=== PATIENT | female | born 1955 | race Caucasian/White ===

== ENCOUNTER → 2017-02-21 | Outpatient (CLI) | payer OTHER, MEDICARE ==
[~2017-02-21] MED LIST: CALC-20 PO; COLE1TAB5 PO; DICY10CA12 PO; IMD/2 PO; LEVO50TA6 PO; LSN5 PO; MULT-663 PO; ULT50X PO
--- NOTE | 2017-02-21 16:07 | MAMMOGRAPHY REPORT ---
BILATERAL DIGITAL SCREENING MAMMOGRAM TOMOSYNTHESIS WITH CAD: 02/21/2017 CLINICAL HISTORY: Asymptomatic. Personal history of breast cancer. TECHNIQUE: Breast tomosynthesis in addition to standard 2D mammography was performed. Current study was also evaluated with a Computer Aided Detection (CAD) system. COMPARISON: Comparison is made to exams dated: 02/19/2016 mammogram, 02/16/2015 mammogram, 12/30/2013 ma mmogram, 04/16/2013 mammogram, 10/16/2012 mammogram, and 03/05/2012 mammogram - [facility] nter. BREAST COMPOSITION: The tissue of both breasts is heterogeneously dense, which may obscure small mas ses. FINDINGS: There or possible areas of architectural distortion in the middle and posterior one third of the medial left breast, best seen on the CC view but thought to project superiorly on the MLO view . Additional spot compression tomosynthesis views and ultrasound are recommended. A linear scar marker overlies the right superior breast. There is expected architectural distortion and surgical clips at the site of prior lumpectomy. There is stable asymmetry in the inferior left b reast on the MLO view. No other suspicious mass, architectural distortion or cluster of microcalcific ations is seen. IMPRESSION: ACR BI-RADS CATEGORY 0: INCOMPLETE EVALUATION: NEED ADDITIONAL IMAGING EVALUATION The possible areas of architectural distortion in the medial left breast need additional evaluation. The patient will be called to schedule an appointment. Approximately 10% of breast cancers are not detected with mammography. A negative mammographic report should not delay biopsy if a clinically suggestive mass is present. Gilda Helm M.D. ay/:02/21/2017 16:02:25 Flyer Builder: Jacqui VALERO(Zarina)(M)(BD), [facility] letter sent: Addl Imaging 0 BI-RADS Code: ACR BI-RADS Category 0: Incomplete Evaluation: Need Additional Imaging Evaluation
== END | disposition home or self-care (01) ==
LOC: C.MAMM 10:29
PROVIDERS: ATTEND Internal Medicine Hematology
DX: Z12.31 Encounter for screening mammogram for malignant neoplasm of breast (principal); Z85.3 Personal history of malignant neoplasm of breast; R92.8 Other abnormal and inconclusive findings on diagnostic imaging of breast

== ENCOUNTER → 2017-03-06 | Outpatient (CLI) | payer OTHER, MEDICARE ==
--- NOTE | 2017-03-06 14:33 | MAMMOGRAPHY REPORT ---
UNILATERAL LEFT DIGITAL DIAGNOSTIC MAMMOGRAM TOMOSYNTHESIS AND TARGETED LEFT ULTRASOUND: 03/06/2017 CLINICAL HISTORY: 61-year-old woman called back from screening mammography for possible areas of arch itectural distortion in the medial left breast. The patient has a personal history of right breast c ancer status post breast conservation treatment. TECHNIQUE: Spot compression left CC and MLO tomosynthesis images were obtained. COMPARISON: Comparison is made to exams dated: 02/21/2017 mammogram, 02/16/2015 mammogram, 12/30/2013 zia mogram, 10/16/2012 mammogram, and 08/29/2011 mammogram - [facility]. BREAST COMPOSITION: The tissue of the left breast is heterogeneously dense, which may obscure small masses. FINDINGS: There is no definite persistent architectural distortion on the spot compression tomosynth esis views of the left breast. No obvious mass or suspicious microcalcifications. Real-time high-resolution sonographic evaluation was performed throughout the medial left breast, inc luding the upper inner and lower inner quadrants. Sonographically normal dense glandular tissue is s een without evidence of a discrete solid or cystic mass. No subtle area of architectural distortion is appreciated on ultrasound. IMPRESSION: ACR BI-RADS CATEGORY 0: INCOMPLETE EVALUATION: NEED ADDITIONAL IMAGING EVALUATION, TARG ETED ULTRASOUND ACR BI-RADS CATEGORY 0: INCOMPLETE EVALUATION: NEED ADDITIONAL IMAGING EVALUATION There is partial effacement of the possible areas of architectural distortion in the medial left trisha st on the supplemental spot compression tomosynthesis images. No suspicious sonographic correlate wa s identified. However, given the appearance on the initial screening mammogram, the personal history of dense breasts and right breast cancer, definitive characterization with a breast MRI is needed to exclude the possibility of a subtle enhancing mass or infiltrative process. These results and recommendations were discussed with the patient at the time of the exam. Approximately 10% of breast cancers are not detected with mammography. A negative mammographic report should not delay biopsy if a clinically suggestive mass is present. Gilda Helm M.D. ay/:03/06/2017 12:34:07 Assistant Paralegal: Svetlana SALAS)(Jim), [facility] letter sent: Addl Imaging 0 BI-RADS Code: ACR BI-RADS Category 0: Incomplete Evaluation: Need Additional Imaging Evaluation Ult rasound BI-RADS: ACR BI-RADS Category 0: Incomplete Evaluation: Need Additional Imaging Evaluation
== END | disposition home or self-care (01) ==
LOC: C.MAMM 10:29
PROVIDERS: ATTEND Internal Medicine Hematology
DX: R92.8 Other abnormal and inconclusive findings on diagnostic imaging of breast (principal)

== ENCOUNTER → 2017-04-10 | Outpatient (CLI) | payer OTHER, MEDICARE ==
[~2017-04-10] MED LIST changes: +GADAVIST IV PRN
[2017-04-10 09:59] LABS: BLOOD UREA NITROGEN 14 mg/dl (7-18)
[2017-04-10 10:00] LABS: CREATININE 0.91 mg/dl (0.60-1.20)
--- NOTE | 2017-04-11 13:03 | MAMMOGRAPHY REPORT ---
BREAST MRI OF BOTH BREASTS : 04/10/2017 CLINICAL HISTORY: 62-year-old woman with a personal history of right breast cancer status post breast conservation treatment recently called back from screening for possible architectural distortion in the left breast. The questionable area of distortion partially effaced with additional supplemental mammogram and tomosynthesis images, and no suspicious sonographic correlate was identified, however a dditional MRI evaluation was recommended given the history of breast cancer and dense breasts. COMPARISON: Comparison is made to exams dated: 03/06/2017 mammogram, 02/21/2017 mammogram, 02/19/2016 ma mmogram, 02/16/2015 mammogram, 12/30/2013 mammogram, and 04/16/2013 mammogram - [facility]. TECHNIQUE: Using a 1.5 Susanne magnet and dedicated breast coil, multisequence axial images were obtain ed through the breasts. After uneventful IV administration of 8 mL of Gadavist, dynamic multiphase c ontrast-enhanced axial images, and sagittal postcontrast were obtained. Temporal subtraction axial i mages and 3-D MIP images are provided. Everything was then reviewed on a 3-D workstation, [employer]ch[employer] publishing. FINDINGS: There is no significant background parenchymal enhancement in the breasts. There is a large area of susceptibility artifact, architectural distortion and skin irregularity in t he upper inner quadrant of the right breast, at the site of prior lumpectomy. There is no evidence o f a suspicious enhancing mass, non-mass enhancement or suspicious kinetics in the right breast. No s uspicious right axillary, subpectoral or internal mammary lymphadenopathy. There is susceptibility artifact denoting a superior periareolar incision of the left breast. A few additional foci of susceptibility artifact extending in a linear fashion in the anterior upper inner quadrant of the left breast, denoting an area of prior surgery. This likely explains the possible ar chitectural distortion seen mammographically, as slight architectural distortion is appreciated in th e sagittal plane, and also on the T1 nonfat saturated images. However, there is no evidence of enhan cement in this area of distortion. No other suspicious enhancing mass, non-mass enhancement or suspi cious kinetics are seen in the left breast. There is no suspicious left axillary, subpectoral or int ernal mammary lymphadenopathy. IMPRESSION: ACR BI-RADS CATEGORY 2: BENIGN The questionable area of architectural distortion in the medial left breast is thought to be postsurg ical in nature, as susceptibility artifact is seen along a superior periareolar incision and extendin g into the upper inner quadrant of the left breast. There is no evidence of a suspicious enhancing m ass or non-mass enhancement in this location. Overall, there is no MRI evidence of malignancy bilater ally. Recommend routine screening at time of next annual exam. The patient will receive written notification of the results. Gilda Helm M.D. ay/:04/10/2017 21:12:28 Community Development Worker: editing internship, [facility] letter sent: Normal 1/2 BI-RADS Code: ACR BI-RADS Category 2: Benign
== END | disposition home or self-care (01) ==
LOC: C.MRI 09:14
PROVIDERS: ATTEND Internal Medicine Hematology & Oncology
DX: C50.911 Malignant neoplasm of unspecified site of right female breast (principal)

== ENCOUNTER → 2018-02-22 | Outpatient (CLI) | payer OTHER, MEDICARE ==
[~2018-02-22] MED LIST changes: -GADAVIST IV PRN; +LISI-730 PO; -LSN5 PO
--- NOTE | 2018-02-23 14:36 | MAMMOGRAPHY REPORT ---
BILATERAL DIGITAL SCREENING MAMMOGRAM TOMOSYNTHESIS WITH CAD: 02/22/2018 CLINICAL HISTORY: Asymptomatic. Personal history of breast cancer. TECHNIQUE: The study was acquired using full field digital technology and interpreted from soft copy. Breast tomosynthesis in addition to standard 2D mammography was performed. Current study was also ev aluated with a Computer Aided Detection (CAD) system. COMPARISON: Comparison is made to exams dated: 03/06/2017 mammogram, 02/21/2017 mammogram, 02/19/2016 ma mmogram, 02/16/2015 mammogram, 12/30/2013 mammogram, and 04/10/2017 breast MRI - [facility] nter. BREAST COMPOSITION: The tissue of both breasts is heterogeneously dense, which may obscure small mass es. FINDINGS: No suspicious masses, calcifications, or areas of architectural distortion are noted in either breast . There has been no significant interval change compared to prior exams. There are stable postsurgic al changes in the right upper outer quadrant from prior lumpectomy. A linear scar marker overlies th e right superior breast. A linear scar marker also overlies the left subareolar breast. Minimal pos tsurgical architectural distortion in the left central breast on the CC tomosynthesis images is stabl e. IMPRESSION: ACR BI-RADS CATEGORY 2: BENIGN There is no mammographic evidence of malignancy. A 1 year screening mammogram is recommended.( 019) The patient will receive written notification of the results. Some breast cancers are not detected with mammography. A negative mammographic report should not tristin y biopsy if a clinically suggestive mass is present. Jennifer Pisano M.D. ah/:02/22/2018 15:40:22 Application Security Specialist: RT Adryan(Zarina)(M), [facility] letter sent: Normal 1/2 BI-RADS Code: ACR BI-RADS Category 2: Benign
== END | disposition home or self-care (01) ==
LOC: C.MAMM 14:19
PROVIDERS: ATTEND Obstetrics & Gynecology
DX: Z12.31 Encounter for screening mammogram for malignant neoplasm of breast (principal)

== ENCOUNTER 2024-04-20 15:10 | Inpatient (IN) ==
--- OUTSIDE RECORDS SUMMARY | 2024-04-20 15:16 | External Medical Summary | Summary of Care ---
Author Name Unknown Organization [facility] Address [address] [place] [address] Phone [phone] Care Team Providers Care Side Boss Name Role Phone Chidi Shine MD Primary Care Provider Encounter Details Date Type Department Care Team (Late st Contact Info) Description 04/10/[address] [facility] [address] [place] [address] Chidi Shine MD [address] [place] [address] Allergies No known active allergiesdocumented as of this encounter (statuses as of 04/10/2024) Medications Medication Sig Dispensed Refills Start Date End Date Status CALCIUM + D 600-200 MG-UNIT PO TABS 1 tablet twice daily Active Loperamide HCl 2 MG Oral Capsule Take 1 Capsule by mouth as needed for Diarrhea (as directed). Active Multiple Minerals-Vitamins (CITRACAL PLUS) Tablet Take 1 Tab by mouth daily. Active Triamcinolone Acetonide 0.5 % creamIndications:Gustavo h and nonspecific skin eruption Apply topically to affected area 2 times a day. To affected area. 30 g 1 03/21/2020 Active Diphenoxylate-Atropi ne 2.5-0.025 MG Oral Tablet (Lomotil)Indications :History of colectomy TAKE 1 TABLET BY MOUTH TWICE A DAY FOR DIARRHEA 180 Tab 1 11/16/2020 Active Colestipol HCl 1 GM Oral Tablet (Colestid)Indication s:Diarrhea due to malabsorption TAKE ONE TABLET BY MOUTH TWICE A DAY 180 Tablet 2 12/20/2023 12/19/2024 Active Lisinopril 10 MG Oral Tablet (Prinivil)Indication s:HTN, goal below 130/80 TAKE ONE TABLET BY MOUTH EVERY DAY 90 Tablet 3 02/17/2024 Active Levothyroxine Sodium 50 MCG Oral Tablet (Levoxyl)Indications :Acquired hypothyroidism take one tablet by mouth first thing in the morning 90 Tablet 2 03/04/2024 Active Dicyclomine HCl 10 MG Oral Capsule (Bentyl) TAKE ONE CAPSULE BY MOUTH TWO TIMES A DAY MAY USE UP TO FOUR CAPSULES DAILY IF NEEDED FOR ABDOMINAL CRAMPING 360 Capsule 1 03/20/2024 03/20/2025 Active documented as of this encounter (statuses as of 04/10/2024) Active Problems Problem Noted Date Diagnosed Date Low vitamin D level 11/21/2022 Intestinal malabsorption 11/18/2021 Vitamin D deficiency 06/09/2014 H/O Clostridium difficile infection 10/23/2012 Overview: Severe and unresponsive to antibiotic therapy: Requiring colectomy History of colectomy 10/02/2011 HISTORY OF CANCER OF BREAST 05/09/2011 Dyslipidemia, goal LDL below 100 06/07/2010 HTN, goal below 130/80 04/26/2010 Other speech disturbance(784.59) 05/07/2009 Overview: ICD-9 Code Update Other osteoporosis without current pathological fracture 03/29/2005 Overview: ICD-10 update of inactive term Acquired hypothyroidism 03/29/2005 Other alopecia documented as of this encounter (statuses as of 04/10/2024) Resolved Problems Problem Noted Date Diagnosed Date Resolved Date HTN, goal below 140/90 12/12/201306/08 S/P colectomy 01/15/2013 05/16/2016 SBO (small bowel obstruction) 08/01/2012 06/14/2019 History of renal failure 04/12/2012 HTN, goal below 140/80 01/06/201212/12 ARF (acute renal failure) 02/26/2011 Hyperpotassemia 02/26/2011 05/16/2016 ELECTROLYT-FLUID DIS NEC - hyponatremia 02/26/2011 05/16/2016 VENOUS THROMBOSIS NOS 01/25/20112015 assisted current use of ant icoagulant therapy 01/25/2011 05/16/2016 Overview: ICD-10 update of inactive term Anticoagulation management encounter 01/25/2011 05/16/2016 Other protein-calorie malnutrition 01/14/2011 05/16/2016 Intestinal infection due to Clostridium difficile 01/13/2011 05/16/2016 Septicemia 01/13/2011 05/16/2016 Ileostomy status 01/13/2011 05/16/2016 BREAST CANCER UPPER INNER 09/28/2010 Cancer Staging:Clinical: Unsigned Pathologic:Stage IIA(T2, N0, cM0) - Signed by Yazan Holt MD on 06/24/2013 ADVANCE DIRECTIVE INFORMATION 03/30/2005 05/16/2016 Overview: No, Advance Directive brochure given to patient at prior appointment. Hypothyroidism 04/28/2003 05/16/2016 Varicella without complication 04/26/2002 05/16/2016 Other speech disturbance Overview: ICD-9 Code Update documented as of this encounter (statuses as of 04/10/2024) Immunizations Name Administration Dates Next Due COVID-19 mRNA, LNP-s, No Pre serve, 2-Dose Series (Moderna) 09/15/2020,08/18/2020 Pneumococcal Conjugate Vacc, 13 Valent (Prevnar) 06/14/2019 Pneumococcal Polysaccharide PPV23 (Pneumovax) 11/16/2020,04/29/2011 Season Influenza, Quad, PF, Adjuvanted, 65+ Yrs, IM (FLUAD) 05/18/2020 Seasonal Influenza, PF, 6 M & above, IM , (FluLaval or Fluzone) 06/14/2019,06/08/2018,05/01/2017 Seasonal Influenza, Quadriva lent, No Preserve, IM 05/16/2016 Seasonal Influenza, Trivalen t, (IIV3), with Preserv, (Fluzone) 06/09/2014,04/29/2013,04/12/2012,04/29,06/04/2007 TDAP (age 10 and older)(Boostrix) 03/20/2015 Varicella Zoster Vaccine (Adult) 06/29/2014 Zoster Vaccine Recombinant (Shingrix) 09/30/2020 ,07/30/2020 documented as of this encounter Social History Tobacco Use Types Packs/Day Years Used Date Smoking Tobacco: Never Passive Smoke Exposure: Never Smokeless Tobacco: Never Alcohol Use Standard Drinks/Week Comments No 0 (1 standard drink = 0.6 oz pur e alcohol) PHQ-2 Answer Date Recorded PHQ Adult Total Score 0 08/21/2023 Hunger Vital Sign Answer Date Recorded Within the past 12 months, y ou worried that your food would run out before you got the money to buy more. Patient declined Within the past 12 months, t he food you bought just didn't last and you didn't have money to get more. Patient declined 12/2023 Childcare Answer Date Recorded Do you feel overwhelmed with taking care of a child, family member or friend? No 11/27/2023 Does your family need help f inding childcare? (Household - for ages 0-17 years) Not on file 11/27/2023 Clothing Answer Date Recorded Have you been unable to get clothing when it was really needed? No 11/27/2023 Is your family able to get c lothes or diapers when needed? (Household - for ages 0-17 years) Not on file 11/27/2023 Personal Safety Answer Date Recorded Do you feel unsafe or have concerns for your saf ety? No 11/27/2023 Do you have concerns for you r family's safety? (Household - for ages 0-17 years) Not on file 11/27/2023 Utilities Answer Date Recorded Do you have trouble paying y our heating, water, or electric bill? No 11/27/2023 Is your family able to pay t he heat, water, or electric bill? (Household - for ages 0-17 years) Not on file 11/27/2023 Does your family have access to good internet? (Household - for ages 0-17 years) Not on file 11/27/2023 Employment Status Answer Date Recorded Are you unemployed or without regular income? No 11/27/2023 Does the household have a re gular source of income? (Household - for ages 0-17 years) Not on file 11/27/2023 Social Connections Answer Date Recorded How often do you feel lonely or isolated from th ose around you? Never 11/27/2023 Financial Resource Strain Answer Date R ecorded Do you have any trouble payi ng for your medications, or do you think you might in the future? No 11/27/2023 Does your family have troubl e paying for medicine? (Household - for ages 0-17 years) Not on file 11/27/2023 Transportation Needs Answer Date Record ed READ ONLY Do you have troubl e getting a ride to medical visits or work? Never True 11/27/2023 Does your family have a hard time getting a ride to doctors visits? (Household - for ages 0-17 years) Not on file 11/27/2023 Has lack of transportation k ept you from medical appointments, meetings, work, or from getting things needed for daily living? Check all that apply. (Adult - for ages 18 years and over) Not on file 11/27/2023 Do you (or your family) have trouble finding or paying for a ride (transportation)? (Household - for ages 0-17 years) Not on file 11/27/2023 Housing Stability Answer Date Recorded Do you currently live in a s helter or have no steady place to sleep at night? No 11/27/2023 READ ONLY Do you think you a re at risk of becoming homeless? No 11/27/2023 Does your family worry about paying for your home or becoming homeless? (Household - for ages 0-17 years) Not on file 0 11/27/2023 Are you homeless or worried that you might be in the future? (Adult - for ages 18 years and over) Not on file Are you (or your family) ute eless or worried that you might be in the future? (Household - for ages 0-17 years) Not on file Food Insecurity Answer Date Recorded Do you need food for this week? No 11/27/2023 Are you able to get enough f ood for your family? (Household - for ages 0-17 years) Not on file 11/27/2023 Does your family need food t his week? (Household - for ages 0-17 years) Not on file 11/27/2023 Do you always have enough fo od for your family? (Household - for ages 0-17 years) Not on file 11/27/2023 Sex and Gender Information Value Date Recorded Sex Assigned at Female 06/14/2019 9:39 AM EST Gender Identity Female 06/14/2019 9:39 AM EST Sexual Orientation Straight 06/14/2019 9: 39 AM EST Job Start Date Occupation Industry Not on file Not on file Not on file documented as of this encounter Plan of Treatment Upcoming Encounters Date Type Department Care Team (Late st Contact Info) Description 05/27/2024 9:40 AM EST [facility] [address] [place] [address] Chidi Shine MD [address] [place] [address] 07/01/2024 10:30 AM EST Imaging Radiology, [address] [address] 08/26/2024 10:00 AM EST Nurse Only Ancillary Department, [facility] [address] [place] [address] [facility], Nurse Annual Wellness [address] [place] [address] Health Maintenance Due Date Last Done Comments Cologuard 1999 Fecal Occult Blood Test 1999 Sigmoidoscopy 1999 *BISPHONATE OR OTHER ACCEPTABLE MEDICATION NEEDED FOR OSTEOPOROSIS (REFER TO SMARTSET #1146) 07/10/2015 DXA Scan 02/16/2024 02/15/2022, 01/22, 07/01/2019, Additional history exists Mammogram 03/21/2024 04/08/2024, 02/22, 03/21/2023, Additional history exists COVID-19 Vaccine ( season) 2024 09/15/2020, 08/18/2020 Influenza Vaccine (FLU shot) (#1) 2024 05/18/2020, 06/14/2019, 06/08/2018, Additional history exists Depression Screening 08/21/2024 08/21/2023 Adult Wellness Visit 11/26/2024 11/27/2023, 08/21/2023, 08/19/2022 GFR 12/03/2024 12/04/2023, 050 07/2022, 10/22/2021, Additional history exists TSH 12/03/2024 12/04/2023, 05/0 07/2022, 11/18/2021, Additional history exists DTap/Tdap Vaccines (2 - Td or Tdap) 03/20/2025 03/20/2015, 03/10/2004, 04/26/1993 Albumin/Creatinine Ratio 12/03/2026 024, 11/21/2022, 11/18/2021, Additional history exists Lipid Panel 12/03/2028 12/04/2023, 050 07/2022, 02/15/2021, Additional history exists Colonoscopy Discontinued 08/03/2012, 02/28/2011 Zoster Vaccines Completed 09/30/2020, 01/2021, 06/29/2014 Pneumococcal Vaccine: 65+ Years Completed 11/16/2020, 06/14/2019, 04/29/2011 VITAMIN D LEVEL ONCE IN A LIFETIME-USE SMARTSET# 49968 Completed 12/04/2023, 11/21/2022, 11/18/2021, Additional history exists Colorectal Cancer Screening Discontinued HPV (Gardasil) Vaccine Aged Out No lo nger eligible based on patient's age to complete this topic Hepatitis B Vaccine Aged Out No longe r eligible based on patient's age to complete this topic MENINGOCOCCAL (MENACTRA/MENVEO) Aged Out No longer eligible based on patient's age to complete this topic documented as of this encounter Medical Devices Implanted Type Area Linux Network Engineer Device Identifier Shelf Expiration Date Model / Serial / Lot Filter Perif Jugular [id number] - [id number] Implanted:Qty: 1 on 01/14/2011 at [place] [facility] [place]: Internal Jugular [employer] : [employer] 09/20/2013 [id number] / / [id number] documented as of this encounter Procedures Procedure Name Priority Date/Time Associated Diagnosis Comments MAMMOGRAM SCREENING BILATERAL Routine 04/08/2024 documented in this encounter Results * MAMMOGRAM SCREENING BILATERAL (04/08/2024) Anatomical Region Laterality Modality Breast Bilateral Other 04/08/2024 Chidi Shine MD RAD MAMMOGRAPHY documented in this encounter Advance Directives * Full Code (Latest Code Status on File) Date Activated Date Inactivated Comments 08/01/2012 9:56 PM 08/05/2012 8:29 PM This order re flects the patients wishes and were consensually agreed upon. * Full Code Date Activated Date Inactivated Comments 10/25/2011 12:07 AM 10/29/2011 4:44 PM This order re flects the patients wishes and were consensually agreed upon. Question Answer Comments Discussion of Advance Directives occurred with: Patient Does the patient have a Living Will? No Does the patient have Health Care Power of Attor charity? No * Full Code Date Activated Date Inactivated Comments 08/12/2011 5:15 PM 08/14/2011 5:56 PM This order r eflects the patients wishes and were consensually agreed upon. Question Answer Comments Discussion of Advance Directives occurred with: Not Discussed Does the patient have a Living Will? No Does the patient have Health Care Power of Attor charity? No * Full Code Date Activated Date Inactivated Comments 02/26/2011 4:10 PM 03/03/2011 9:00 PM Re evaluated limited code this am with family present and with further information, patient states that she would like to have CPR and intubation. 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 Question Answer Comments Discussion of Advance Directives occurred with: Patient/Family Does the patient have a Living Will? No Does the patient have Health Care Power of Data Systems Manager? Yes, not currently available * Limited Code Date Activated Date Inactivated Comments 02/26/2011 1:08 AM 02/26/2011 4:10 PM This order ref lects the patients wishes and were consensually agreed upon. Question Answer Comments Discussion of Advance Directives occurred with: Patient/Family Does the patient have a Living Will? No Does the patient have Health Care Power of Attor charity? No Bag Valve Device? No Intubation? No Cardiac Compressions? Yes Defibrillation? Yes Synchronized Cardioversion? Yes External Pacemaker? Yes Cardiac Drugs? Yes Care Teams Side Boss Relationship Specialty Start Date End Date Chidi Shine MD [address] [place] [address] PCP - General Family Medicine 11/15/18 documented as of this encounter
[2024-04-20 16:15] LABS: Basophils # (auto) 0.01 K/uL (0.00-0.20); Basophils % (auto) 0.1 %; Immature Granulocytes # (auto) 0.02 K/uL (0.01-0.20); Immature Granulocytes % (auto) 0.3 %; Lymphocytes # (auto) 0.63 K/uL (1.20-3.40); Lymphocytes % (auto) 8.8 %; Mean Corpuscular Hemoglobin 29.4 pg (25.0-34.0); Mean Corpuscular Hgb Conc 32.6 g/dL (32.0-36.0); Mean Corpuscular Volume 90.1 fL (80.0-100.0); Mean Platelet Volume 9.7 fL (9.4-12.4); Neutrophils # (auto) 5.98 K/uL (1.40-6.50); Neutrophils % (auto) 83.8 %; Platelet Count 198 K/uL (130-400); RDW Coefficient of Variation 12.8 % (11.5-14.5); RDW Standard Deviation 42.2 fL (36.4-46.3); Red Blood Count 4.77 M/uL (4.20-5.40); White Blood Count 7.14 K/ul (4.8-10.8)
[2024-04-20 16:32] LABS: Albumin Globulin Ratio 1.8 (0.9-2); Albumin Level 4.4 gm/dl (3.4-5.0); BUN Creatinine Ratio 27.5 (10-20); Bilirubin,Total 0.8 mg/dl (0.2-1.0); Calcium 10.1 mg/dl (8.6-10.3); Creatinine Clr Calc Pharmacy 45.5 ml/min; Est GFR (African American) 74.1 ml/min; Est GFR (Non-African American) 63.9 ml/min; Globulin 2.4 gm/dl (2.5-4.0); Potassium 4.1 mmol/L (3.5-5.1); Total Protein 6.8 gm/dl (6.0-8.3)
[2024-04-20 16:40] LABS: Troponin I High Sensitivity 70.2 pg/ml (0-14)
[2024-04-20 17:02] LABS: Appearance Urine Clear (Clear); Bilirubin Urine Negative (Negative); Blood Urine Negative (Negative); Color Urine Yellow; Glucose Urine UA Negative (Negative); Ketones Urine Negative (Negative); Leukocyte Esterase Urine Negative (Negative); Nitrite Urine Negative (Negative); Protein Urine Negative (Negative); Specific Gravity Urine 1.016 (1.000-1.030); Urobilinogen Urine Negative (Negative)
--- NOTE | 2024-04-20 17:26 | Emergency Department Note ---
Impression & Plan Elevated troponin, Hypertension, Lightheadedness ED Provider Note NAME: OMAYRA ASENCIO AGE: 69 SEX: F : 1955 ARRIVES VIA: Walk-In INFORMANT: Patient, ED PROVIDER(S): Endy Holt MD CHIEF COMPLAINT: Hypertension, lightheadedness HPI: This is a 69-year-old female presenting for lightheadedness and hypertension. Earlier his evening patient noted an episode of lightheadedness. She felt "dizzy but clarifies that this was not vertigo. She was told to lay down by her . Upon checking blood pressure was 180s over 150s. She then laid down and rested for about 2030 minutes. Her blood pressure then down trended to 109 systolic. is worried about stroke so he presented here. Patient had no neurologic deficits previously as well as right now. She has no chest pain, shortness of breath, fever, chills, nausea vomiting or diarrhea. ROS: See above HPI for pertinent positives & negatives. A total of 10 systems reviewed and were otherwise negative. PAST MEDICAL HISTORY: See Below PAST SURGICAL HISTORY: See Below FAMILY HISTORY: See Below SOCIAL HISTORY: See Below HOME MEDICATIONS: See Below ALLERGIES: See Below VITALS: See Below PHYSICAL EXAMINATION: General: resting comfortably in no acute distress Head: Normocephalic and atraumatic Eyes: Normal inspection, extraocular muscles intact Ear, nose, throat: Normal external exam Neck: Normal range of motion Respiratory: lungs clear to auscultation bilaterally Cardiovascular: Regular rate/rhythm, no murmur GI: soft, nontender, no guarding or rebound Extremities: nontender, moves all extremities Neuro: The patient awake and alert, appropriately conversive, no focal deficits, symmetric faces, strength intact all extremities, cranial nerves II to XII intact Skin: Warm, dry, and intact MEDICAL DECISION MAKING: This is a 69-year-old female presenting for lightheadedness/hypertension. Patient's vital signs reviewed here and within normal limits, not hypertensive. No abnormal neurologic exam. She has had no chest pain. -ECG independently interpreted by me with normal sinus rhythm, rate of 70, normal axis, normal AK, normal QRS, normal QTc, no ST segment elevations consistent with STEMI criteria -Patient's blood work is reviewed showing no significant normalities aside from a unexpected troponin elevation at 70. -Despite no clear symptoms to suggest ACS, patient will require further workup for this. -Discussed with [facility] service for admission Differential diagnosis: ACS, stroke, hypertension, tensive emergency ER treatment provided: See below Independent History obtained from: Diagnostics interpreted by me: ECG: None Cardiac Monitoring: An order was placed for continuous cardiac monitoring. The monitor shows a rate of 67 with sinus rhythm. Laboratory studies: As stated above and show below. Imaging studies: See below. Past Med/Surg History Problem List (Updated 04/21/24 @ 19:34 by Endy Holt MD) Lightheadedness (Acute) Hx of Clostridium difficile infection APPROX 4980-1122 > [place] Elevated troponin (Acute) Hypothyroidism Hypertension (Acute) Dizziness Encounter for pre-operative examination History of mastectomy, subtotal (Chronic) "09/06/2010 Right PM/SLNB at [facility] - Dr. Skelton" History of partial colectomy (Chronic) H/O esophagogastroduodenoscopy (Chronic) H/O exploratory laparotomy (Chronic) Abdominal pain SBO (small bowel obstruction) Encounter for pre-operative examination Medical History (Updated 04/21/24 @ 19:34 by Endy Holt MD) Hyperlipidemia Osteoarthritis Hx SBO Breast cancer CHEMO/RADIATION> YRS AGO> NO PORTS 2010 Surgical History Hx of right cataract extraction History of colonoscopy History of esophagogastroduodenoscopy (EGD) Hx of exploratory laparotomy History of creation of ostomy SINCE RESOLVED H/O colectomy History of breast biopsy History of mastectomy PARTIAL 2010> RIGHT Family History Father Diabetes Social History Smoking Status: Never smoker Second Hand Exposure: No; Do You Dip or Chew Tobacco: No; Hx Alcohol Use: No Hx Substance Use: No Preferred Language: Turkmen Communication Ability: Effective Bicycle Courier Required: No Beliefs That Will Affect Care: None Current Living Situation: Spouse Current Living Situation Comment: home with Feels Safe at Home: Yes Safety Concerns: Feels Safe At This Time Assistive Devices: None Allergies Allergies Allergy/AdvReac Type Severity Reaction Status Date / Time No Known Allergies Allergy Verified 10/08/19 15:42 Home Meds Home Medications Medication Instructions Recorded Confirmed calcium carbonate (Calcium 600) 600 mg PO BID 09/23/19 04/20/24 colestipol 1 gram tablet 1 g PO QAM 09/23/19 04/20/24 dicyclomine 10 mg capsule 10 mg PO BID PRN Abdominal Pain 09/23/19 04/20/24 levothyroxine 50 mcg tablet 50 mcg PO QAM 09/23/19 04/20/24 lisinopril 5 mg tablet 5 mg PO QAM 09/23/19 04/20/24 Previous Rx's Medication Instructions Recorded aspirin 81 mg capsule 81 mg PO DAILY #30 caps 04/21/24 Results & Data (ED) Vital Signs Vital Signs - 24 hr 04/20/24 15:11 04/20/24 15:42 04/20/24 16:52 Temperature 36.3 C L Temperature Source Skin Pulse Rate 82 67 Respiratory Rate 19 Respiratory Effort / Characteristics Non-Labored Spontaneous Respiratory Depth Normal Respiratory Pattern Regular Blood Pressure 137/93 Blood Pressure Mean 107 Pulse Oximetry 97 99 Oxygen Delivery Method Room Air Room Air Sepsis Recent Fever Within 48 Hours No Sepsis New/Unexplained Change in Mental Status No Sepsis Action Taken by Nursing No Action Required Laboratory Data 04/20/24 15:56 04/20/24 15:56 Lab Results 04/20/24 04/20/24 04/20/24 Range/Units 15:56 16:42 18:00 WBC 7.14 (4.8-10.8) K/ul RBC 4.77 (4.20-5.40) M/uL Hgb 14.0 (12.0-16.0) g/dl Hct 43.0 (37.0-47.0) % MCV 90.1 (80.0-100.0) fL MCH 29.4 (25.0-34.0) pg MCHC 32.6 (32.0-36.0) g/dL RDW Std Deviation 42.2 (36.4-46.3) fL RDW Coeff of Dheeraj 12.8 (11.5-14.5) % Plt Count 198 (130-400) K/uL MPV 9.7 (9.4-12.4) fL Immature Gran % (Auto) 0.3 % Neut % (Auto) 83.8 % Lymph % (Auto) 8.8 % Mccreary % (Auto) 7.0 % Eos % (Auto) 0.0 % Baso % (Auto) 0.1 % Neut # (Auto) 5.98 (1.40-6.50) K/uL Lymph # (Auto) 0.63 L (1.20-3.40) K/uL Mccreary # (Auto) 0.50 (0.11-0.59) K/uL Eos # (Auto) 0.00 (0.00-0.50) K/uL Baso # (Auto) 0.01 (0.00-0.20) K/uL Immature Gran # (Auto) 0.02 (0.01-0.20) K/uL Sodium 139 (136-145) mmol/L Potassium 4.1 (3.5-5.1) mmol/L Chloride 105 (98-107) mmol/L Carbon Dioxide 29 (21-32) mmol/L Anion Gap 5 (3-11) BUN 25 H (6-23) mg/dl Creatinine 0.91 (0.6-1.2) mg/dl Est Cr Clr Drug Dosing 45.5 ml/min Est GFR ( Amer) 74.1 ml/min Est GFR (Non-Af Amer) 63.9 ml/min BUN/Creatinine Ratio 27.5 H (10-20) Glucose 98 (70-99(Fasting)) mg/dl Calcium 10.1 (8.6-10.3) mg/dl Magnesium 1.9 (1.7-2.4) mg/dl Total Bilirubin 0.8 (0.2-1.0) mg/dl AST 40 H (13-39) U/L ALT 40 (7-52) U/L Alkaline Phosphatase 97 (34-104) U/L Troponin I High Sens 70.2 H* 89.7 H* D (0-14) pg/ml Total Protein 6.8 (6.0-8.3) gm/dl Albumin 4.4 (3.4-5.0) gm/dl Globulin 2.4 L (2.5-4.0) gm/dl Albumin/Globulin Ratio 1.8 (0.9-2) TSH 0.568 (0.300-4.500) uIu/ml Urine Color Yellow Urine Appearance Clear (Clear) Urine pH 5.0 (4.5-7.5) Ur Specific [place] 1.016 (1.000-1.030) Urine Protein Negative (Negative) Urine Glucose (UA) Negative (Negative) Urine Ketones Negative (Negative) Urine Blood Negative (Negative) Urine Nitrite Negative (Negative) Urine Bilirubin Negative (Negative) Urine Urobilinogen Negative (Negative) Ur Leukocyte Esterase Negative (Negative) Administered Medications Discontinued Medications Aspirin (Aspirin 81 Mg Chew) 324 mg PO NOW STA Stop: 04/20/24 18:12 Last Admin: 04/20/24 18:42 Dose: 324 mg Documented By: JERRY Aspirin (Aspirin 81 Mg Ectab) 81 mg PO DAILY EDGAR Stop: 05/21/24 08:59 Last Admin: 04/21/24 09:12 Dose: 81 mg Documented By: NEISHA Colestipol HCl (Colestipol Hcl 1 Gm Tab) 1 gm PO DAILY@1000 EDGAR Stop: 05/21/24 09:59 Last Admin: 04/21/24 09:12 Dose: 1 gm Documented By: NEISHA Dicyclomine HCl (Dicyclomine Hcl 10 Mg Cap) 10 mg PO BID PRN PRN Reason: Abdominal Pain Stop: 05/20/24 22:45 Last Admin: 04/21/24 09:12 Dose: 10 mg Documented By: NEISHA Heparin Sodium (Porcine) (Heparin Sod 5,000 Unit/0.5 Ml Vial) 5,000 units SQ Q12 EDGAR Stop: 05/20/24 22:45 Last Admin: 04/21/24 09:17 Dose: 5,000 units Documented By: Admin: 04/21/24 00:08 Dose: 5,000 units Documented By: RANDALL Ioversol (Optiray 320 125ml) 118 ml IV ONCE ONE Stop: 04/21/24 09:54 Last Admin: 04/21/24 09:53 Dose: 118 ml Documented By: MANNIE Levothyroxine Sodium (Levothyroxine Sodium 50 Mcg Tablet) 50 mcg PO DAILYBB [facility] Stop: 05/21/24 06:29 Last Admin: 04/21/24 06:11 Dose: 50 mcg Documented By: RANDALL Lisinopril (Lisinopril 5 Mg Tab) 5 mg PO QAM [facility] Stop: 05/21/24 08:59 Last Admin: 04/21/24 09:12 Dose: 5 mg Documented By: NEISHA Discharge Plan Visit Data Chief Complaint: Hypertension Stated Complaint: DIZZY, HIGH BLOOD PRESSURE ED Provider: Endy Holt Discharge Problem: Elevated troponin, Hypertension, Lightheadedness Patient Disposition: Admitted As Inpatient
--- NOTE | 2024-04-20 17:34 | History & Physical Report ---
<Statement entered by Wilian Sanford MD - 04/20/24 18:57> Attending Addendum: Case reviewed with the advanced practitioner. I have personally performed a history and physical examination on the patient. I have reviewed the advanced practitioner's documentation on the date of service referenced in note, and I agree with, and take responsibility for the plan of care. Patient found by "hunched over" with BP >180/100, query hypertensive emergency vs. CVA vs. central vertigo. BP normal on presentation to the ED, symptoms improved. Will order CT head, consult neuro for further recommendations. Previous occurences which patient endorses would indicate less likely CVA, as such will defer MRI to neurology for now. Date of Service April 20, 2024 Assessment & Plan (1) Dizziness: Plan: Patient is 69-year-old female with PMH HTN, hypothyroidism, history C. difficile infection unresponsive to antibiotic therapy s/p subtotal colectomy end ileostomy with ileostomy reversed, history of breast cancer s/p partial mastectomy, chemo and radiation presented to ER with c/o episode of lightheadedness episode today and feeling fatigued today. CT head: no acute intracranial abnormality In ER afebrile, vitals stable. No leukocytosis, no significant electrolyte abnormality. UA unremarkable Currently in ER patient states feels well and not having any symptoms of lightheadedness or dizziness DDx: TIA, CVA, HTN emergency, orthostatic hypotension Tele to monitor for arrhythmias TSH pending A1c and lipid panel in am EKG in am Trend troponin MRI brain U/S carotids Echo Aspiration precautions, fall precautions PT/OT consult Start aspirin CBC, BMP in am May need to consider neurology consult (2) Elevated troponin: Plan: EKG: Sinus rhythm, rate 70, no ST elevation noted per my interpretation CXR: no infiltrate noted per my interpretation Troponin: 70 R/O ACS.DDx: demand ischemia, HTN urgency/emergency Reported home BP on wrist cuff 188/155. In ER BP: 137/93 and 119/81 Denies CP, SOB or palpitations Monitor Vitals Repeat EKG in am Will trend troponin Echo Lipid panel in AM Start aspirin If troponins uptrending consider cardiology consult (3) Hypertension: Plan: Reported home BP on wrist cuff 188/155. In ER BP: 137/93 and 119/81, 133/88 Will continue home lisinopril with holding parameters (4) Hypothyroidism: Plan: TSH pending Continue home levothyroxine (5) Hx of Clostridium difficile infection: Plan: History severe c-diff s/p that was unresponsive to antibiotic therapy s/p subtotal colectomy end ileostomy with ileostomy reversed Denies diarrhea recently. Sometimes has loose stools and will use Imodium but hasn't needed to recently per pt On dicyclomine prn DVT Prophylaxis Heparin SQ Admit med tele Full Code as per discussion with pt, however reports if poor prognosis would not want Follows with Dr Shine for routine care Pt was seen and care coordinated with Dr Sanford. See addendum I spent a total of 75 minutes reviewing notes, outpatient records, labs, medication, coordinating, documenting and providing care for this patient excluding time spent in the performance of separately billed services. History of Present Illness Chief Complaint: Dizziness Primary Care Provider: Chidi Shine MD Patient is 69-year-old female with PMH HTN, hypothyroidism, history C. difficile infection unresponsive to antibiotic therapy s/p subtotal colectomy end ileostomy with ileostomy reversed, history of breast cancer s/p partial mastectomy, chemo and radiation presented to ER with c/o episode of dizziness. History obtained from patient, patient's and outpatient chart review. Patient reports went to her appointment around 1130 today and she reports she was "not feeling right" and describes as feeling more tired than usual. She states she felt tired throughout her hair appointment. States she did have her head tilted back at shampoo bowl but was not for a prolonged amount of time and didn't feel any different at that time. States she came home and upon walking into her house she felt more tired and a little short of breath. Reports she called for her . When came out he noticed she was standing but slumped over and appeared generally weak. Patient states at that time she was feeling lightheaded. He states he walked her up the stairs and she was slower walking up the stairs and needed some assistance. Patient denies noting one- sided weakness states just felt generally weak. reports had patient lie down in bed and used automatic wrist BP cuff with reported BP of 188/155. Reports patient has speech impediment at baseline with some difficulty pronouncing some words. did not notice any speech changes, facial drooping. Patient denies any facial or extremity paresthesias, chest pain, palpitations. states repeated BP with same reading approximately 15 minutes later and came to hospital for further evaluation. Upon ER arrival patient had BP 137/93 and she reports feeling at her baseline. States doesn't regularly check her BP at home. Patient reports approximately 2 months ago had episode of feeling lightheaded while she was getting her hair done but that symptoms resolved and she didn't think much of it. Denies fever/chills, diaphoresis, N/V/D/C, , syncope, vision changes, neck pain, CP, orthopnea, palpitations, cough, sore throat, choking, otalgia, rhinorrhea, abdominal pain, paresthesias, extremity edema, rashes, urinary symptoms. Denies recent travel. Allergies Allergy/AdvReac Type Severity Reaction Status Date / Time No Known Allergies Allergy Verified 10/08/19 15:42 Home Medications Medication Instructions Recorded Confirmed Type calcium carbonate (Calcium 600) 600 mg PO BID 09/23/19 04/20/24 History colestipol 1 gram tablet 1 g PO QAM 09/23/19 04/20/24 History dicyclomine 10 mg capsule 10 mg PO BID PRN Abdominal Pain 09/23/19 04/20/24 History levothyroxine 50 mcg tablet 50 mcg PO QAM 09/23/19 04/20/24 History lisinopril 5 mg tablet 5 mg PO QAM 09/23/19 04/20/24 History Past Med/Surg History Problem List (Updated 04/20/24 @ 18:45 by Callie Matta PA-C) Hx of Clostridium difficile infection APPROX 8670-0905 > [place] Elevated troponin Hypothyroidism Hypertension Dizziness Encounter for pre-operative examination History of mastectomy, subtotal (Chronic) "09/06/2010 Right PM/SLNB at [facility], [place] - Dr. Skelton" History of partial colectomy (Chronic) H/O esophagogastroduodenoscopy (Chronic) H/O exploratory laparotomy (Chronic) Abdominal pain SBO (small bowel obstruction) Encounter for pre-operative examination Medical History (Updated 04/20/24 @ 18:45 by Callie Matta PA-C) Hyperlipidemia Osteoarthritis Hx SBO Breast cancer CHEMO/RADIATION> YRS AGO> NO PORTS 2010 Surgical History Hx of right cataract extraction History of colonoscopy History of esophagogastroduodenoscopy (EGD) Hx of exploratory laparotomy History of creation of ostomy SINCE RESOLVED H/O colectomy History of breast biopsy History of mastectomy PARTIAL 2010> RIGHT Family History Father Diabetes Social History Smoking Status: Never smoker Second Hand Exposure: No; Do You Dip or Chew Tobacco: No; Hx Alcohol Use: No Hx Substance Use: No Preferred Language: Greek Communication Ability: Effective Store Operations Manager Required: No Beliefs That Will Affect Care: None Current Living Situation: Spouse Feels Safe at Home: Yes Assistive Devices: Glasses Review of Systems Review of Systems: All systems reviewed & are unremarkable except as noted in HPI & below Physical Exam Physical Exam: General: no distress, WDWN Head: normocephalic, atraumatic Eyes: PERRL, EOM's intact, conjunctiva non-injected, anicteric ENT: normal inspection external ears, nose, mucous membranes moist Neck: supple, trachea midline Lungs: clear, no respiratory distress, no wheezing/rhonchi/rales CV: RRR, no murmur, no pretibial edema Abd: normal BS, soft, non-tender Ext: no cyanosis, no calf tenderness Neuro: A&O x 3, visual villalba intact. PERRL, EOMs intact. No nystagmus, facial sensation is intact and symmetric, face is strong and symmetric, hearing grossly intact, soft palate elevates symmetrically, + dysarthria with difficulty pronouncing some words (reports this is baseline). shoulder shrug intact, tongue is midline, normal movement, no fasciculations Strength 5/5 bilateral upper and lower extremities. normal affect Skin: warm, dry Results & Data Results & Data Vital Signs (Past 12 Hours) Vital Signs Temp Pulse Pulse Resp BP BP Pulse Ox 04/20/24 17:00 67 18 119/81 98 04/20/24 16:52 67 04/20/24 15:42 99 04/20/24 15:11 36.3 C L 82 19 137/93 97 O2 Del Method 04/20/24 17:00 Room Air 04/20/24 16:52 04/20/24 15:42 Room Air 04/20/24 15:11 Room Air Laboratory Results Short CBC 04/20/24 Range/Units 15:56 WBC 7.14 (4.8-10.8) K/ul Hgb 14.0 (12.0-16.0) g/dl Hct 43.0 (37.0-47.0) % Plt Count 198 (130-400) K/uL BMP 04/20/24 15:56 Sodium 139 Potassium 4.1 Chloride 105 Carbon Dioxide 29 BUN 25 H Creatinine 0.91 Glucose 98 Calcium 10.1 Liver Function 04/20/24 Range/Units 15:56 Total Bilirubin 0.8 (0.2-1.0) mg/dl AST 40 H (13-39) U/L ALT 40 (7-52) U/L Alkaline Phosphatase 97 (34-104) U/L Albumin 4.4 (3.4-5.0) gm/dl Urine 04/20/24 Range/Units 16:42 Urine Color Yellow Urine Appearance Clear (Clear) Urine pH 5.0 (4.5-7.5) Ur Specific [place] 1.016 (1.000-1.030) Urine Protein Negative (Negative) Urine Glucose (UA) Negative (Negative) Diagnostic Findings Chest X-Ray 04/20/24 17:28 SINGLE VIEW CHEST CLINICAL HISTORY: Dizziness. FINDINGS: 2 AP, portable, upright chest radiographs are compared to study dated 07/03/2016. Correlation is made with chest CT dated 12/16/2010. The cardiomediastinal silhouette is unremarkable. Chronic interstitial thickening is similar to previous. The lungs and pleural spaces are clear. No pneumothorax is seen. The skeletal structures are osteopenic. The bony thorax is grossly intact. IMPRESSION: No active disease in the chest. ACT 112: Negative or not required by law. Electronically signed by: Elbert Alvarez M.D. 04/20/2024 6:[address] 04/20/24 17:28 CT SCAN OF THE BRAIN WITHOUT IV CONTRAST CLINICAL HISTORY: Dizziness. COMPARISON STUDY: No priors. TECHNIQUE: Unenhanced axial CT scan of the brain is performed from the vertex to the skull base. A dose lowering technique was utilized adhering to the principles of ALARA. CT DOSE: 766.29 mGy.cm FINDINGS: Brain parenchyma: There is age-related involutional change noting minimal microangiopathic disease. There is no hemorrhage, mass effect, or evidence of acute territorial ischemia by CT criteria. Rao-white matter differentiation is preserved. No extra-axial fluid collection is seen. Ventricles, sulci, cisterns: Prominent secondary to involutional change. Intracranial vasculature: The visualized intracranial vessels at the skull base are normal in appearance. Calvarium: Unremarkable. Sinuses and mastoids: The visualized paranasal sinuses are clear. The mastoid air cells are well pneumatized. Orbits: The bony orbits are grossly intact. There are bilateral ocular lens implants. IMPRESSION: There is no hemorrhage, mass effect, or evidence of acute territorial ischemia by CT criteria. ACT 112: Negative or not required by law. Electronically signed by: Elbert Alvarez M.D. 04/20/2024 5:52 PM
--- NOTE | 2024-04-20 17:53 | CT Scan Report ---
CT SCAN OF THE BRAIN WITHOUT IV CONTRAST CLINICAL HISTORY: Dizziness. COMPARISON STUDY: No priors. TECHNIQUE: Unenhanced axial CT scan of the brain is performed from the vertex to the skull base. A do se lowering technique was utilized adhering to the principles of ALARA. CT DOSE: 766.29 mGy.cm FINDINGS: Brain parenchyma: There is age-related involutional change noting minimal microangiopathic disease. T here is no hemorrhage, mass effect, or evidence of acute territorial ischemia by CT criteria. Rao-wh ite matter differentiation is preserved. No extra-axial fluid collection is seen. Ventricles, sulci, cisterns: Prominent secondary to involutional change. Intracranial vasculature: The visualized intracranial vessels at the skull base are normal in appeara nce. Calvarium: Unremarkable. Sinuses and mastoids: The visualized paranasal sinuses are clear. The mastoid air cells are well pneu matized. Orbits: The bony orbits are grossly intact. There are bilateral ocular lens implants. IMPRESSION: There is no hemorrhage, mass effect, or evidence of acute territorial ischemia by CT shirin fan. ACT 112: Negative or not required by law. Electronically signed by: Elbert Alvarez M.D. 04/20/2024 5:52 PM
[2024-04-20 18:35] LABS: Magnesium 1.9 mg/dl (1.7-2.4)
--- NOTE | 2024-04-20 18:37 | XRay Report ---
SINGLE VIEW CHEST CLINICAL HISTORY: Dizziness. FINDINGS: 2 AP, portable, upright chest radiographs are compared to study dated 07/03/2016. Correlati on is made with chest CT dated 12/16/2010. The cardiomediastinal silhouette is unremarkable. Chronic i nterstitial thickening is similar to previous. The lungs and pleural spaces are clear. No pneumothora x is seen. The skeletal structures are osteopenic. The bony thorax is grossly intact. IMPRESSION: No active disease in the chest. ACT 112: Negative or not required by law. Electronically signed by: Elbert Alvarez M.D. 04/20/2024 6:35 PM
[2024-04-20] MEDS: ASPIRIN 81 MG CHEW PO STA (18:42)
[2024-04-20 18:54] LABS: Thyroid Stimulating Hormone 0.568 uIu/ml (0.300-4.500); Troponin I High Sensitivity 89.7 pg/ml (0-14)
--- NOTE | 2024-04-20 19:34 | Magnetic Resonance Report ---
MRI OF THE BRAIN WITHOUT IV CONTRAST CLINICAL HISTORY: Dizziness. COMPARISON STUDY: CT of the brain dated 04/20/2024. TECHNIQUE: MRI of the brain was performed utilizing various T1 and T2-weighted sequences in the axial , sagittal, and coronal planes. IV contrast was not administered for this examination. FINDINGS: Brain parenchyma: There is age-related involutional change noting minimal microangiopathic disease. T here is no hemorrhage or mass effect. There is no restricted diffusion to suggest acute ischemia. Gra y-white matter differentiation is preserved. No extra-axial fluid collection is seen. The cerebellar tonsils are normal in configuration. Ventricles, sulci, and cisterns: Prominent secondary to involutional change. Pituitary and sella: Unremarkable. Intracranial vasculature: Normal flow voids are maintained at the skull base. Orbits: The bony orbits are grossly intact. Orbital contents are normal in appearance noting bilatera l ocular lens implants. Sinuses and mastoids: There is mild mucosal thickening in the left axillary antrum. The remaining par anasal sinuses and the mastoid air cells are clear. Calvarium: Unremarkable. Cervical cord: Partially visualized cervical spinal cord is normal in morphology and signal intensity . IMPRESSION: No acute intracranial abnormalities. ACT 112: Negative or not required by law. Electronically signed by: Elbert Alvarez M.D. 04/20/2024 7:31 PM
[2024-04-20] MEDS ORDERED: ONDANSETRON INJ 2 MG/ML 2 ML VIAL IV PRN (22:46)
[2024-04-20] MEDS ORDERED: POLYETHYLENE (MIRALAX) 17 GM PACK PO PRN (22:46)
[2024-04-20] MEDS ORDERED: PHARMACIST DISCHARGE MED REC CONSULT PRN (22:46)
[2024-04-20] MEDS ORDERED: ACETAMINOPHEN 325 MG TAB PO PRN (22:46)
[2024-04-21] MEDS: HEPARIN SOD 5,000 UNIT/0.5 ML VIAL SQ SCH (00:08)
--- NOTE | 2024-04-21 02:22 | Ultrasound Report ---
Exam(s): US CAROTID EXAM: US Duplex Bilateral Extracranial Arteries CLINICAL HISTORY: dizziness. TECHNIQUE: Real-time duplex ultrasound scan of the extracranial arteries integrating B-mode two-dimensional vascular structure, Doppler spectral analysis and color flow Doppler imaging. COMPARISON: No relevant prior studies available. FINDINGS: Right common carotid artery: The right common carotid artery is patent with peak systolic velocities between 82 and 70 cm/s. No occlusion or significant stenosis on color flow and spectral Doppler imaging. Right internal carotid artery: The right internal carotid artery is patent with peak systolic velocities between 54 cm/s proximally, 50 cm/s at the mid segment and 78 cm/s distally. No occlusion or significant stenosis on color flow and spectral Doppler imaging. Right external carotid artery: Unremarkable. No occlusion or significant stenosis on color flow and spectral Doppler imaging. Right vertebral artery: There is antegrade flow noted involving the right vertebral artery with peak systolic velocity of 36 cm/s. Right ICA/CCA ratio: The right ICA/CCA ratio is 1.1. Left common carotid artery: The left common carotid artery is patent with peak systolic velocities between 69 and 67 cm/s. No occlusion or significant stenosis on color flow and spectral Doppler imaging. Left internal carotid artery: The left internal carotid arteries patent with peak systolic velocities between 33, 49 and 48 cm/s. No occlusion or significant stenosis on color flow and spectral Doppler imaging. Left external carotid artery: Unremarkable. No occlusion or significant stenosis on color flow and spectral Doppler imaging. Left vertebral artery: There is antegrade flow noted involving the left vertebral artery with peak systolic velocity of 38 cm/s. Left ICA/CCA ratio: The left ICA/CCA ratio is 0.72. Lymph nodes: Unremarkable. No lymphadenopathy. CAROTID STENOSIS REFERENCE USING SRU CRITERIA: Mild - <50% stenosis. ICA PSV is less than 125 cm/second and plaque or intimal thickening is visible. Moderate - 50-69% stenosis. ICA PSV is 125 to 230 cm/second and plaque is visible. Severe - 70-94% stenosis. ICA PSV is more than 230 cm/second and visible plaque with lumen narrowing is seen. Near occlusion - 95-99% stenosis. ICA PSV is variable and significant plaque with luminal narrowing is seen. Occluded - 100% stenosis. No flow identified. IMPRESSION: 1. The common carotid and internal carotid arteries are patent without duplex evidence for significant hemodynamic stenosis. 2. The vertebral arteries are patent with antegrade flow noted bilaterally. Electronically signed by: Antione Ibrahim MD 04/21/24 02:21 AM
[2024-04-21] MEDS: LEVOTHYROXINE SODIUM 50 MCG TABLET PO SCH (06:11)
[2024-04-21 07:17] LABS: Troponin I High Sensitivity 40.1 pg/ml (0-14)
[2024-04-21 08:29] LABS: Estimated Average Glucose 108 mg/dl; Hemoglobin A1C 5.4 % (4.5-5.6)
[2024-04-21] MEDS: COLESTIPOL HCL 1 GM TAB PO SCH (09:12)
[2024-04-21] MEDS: DICYCLOMINE HCL 10 MG CAP PO PRN (09:12)
[2024-04-21] MEDS: lisinopril 5 MG TAB PO SCH (09:12)
[2024-04-21] MEDS: ASPIRIN 81 MG ECTAB PO SCH (09:12)
[2024-04-21] MEDS: OPTIRAY 320 125ml IV ONE (09:53)
--- NOTE | 2024-04-21 10:19 | CT Scan Report ---
CT ANGIOGRAM OF THE BRAIN; CT ANGIOGRAM OF THE NECK CLINICAL HISTORY: Dizziness. COMPARISON STUDY: Unenhanced CT of the brain and MRI of the brain dated 04/20/2024. Carotid artery ul trasound dated 04/12/2024. TECHNIQUE: Following the IV administration of 118 of Optiray 320, CT angiogram of the head and neck w as performed from the aortic arch to the vertex. Images are reviewed in the axial, sagittal, and arsenio nal planes. 3-D MIPS images are created and assessed. IV contrast was administered without complicati on. All measurements were calculated based on NASCET criteria. A dose lowering technique was utilize d adhering to the principles of ALARA. CT DOSE: 383.98 mGy.cm FINDINGS: Brain parenchyma: There is age related involutional change noting minimal microangiopathic disease. T here is no evidence of hemorrhage, mass effect, or acute territorial ischemia noting angiographic pha se technique. There is no evidence of enhancing mass lesion on the angiogram phase images. The ventri cles, sulci, and cisterns are prominent secondary to involutional change. Rao-white matter different iation is preserved. No extra-axial fluid collection is seen. Thoracic aorta: Visualized portions of the thoracic aorta are normal in caliber. The aortic arch demo nstrates standard 3-vessel anatomy. Right carotid arterial system: The right common carotid artery is widely patent, as are the right int ernal and external carotid arteries. Left carotid arterial system: The left common carotid artery is widely patent, as are the left mechanical engineering intern al and external carotid arteries. Vertebral arteries: Widely patent bilaterally and codominant. Subclavian arteries: Widely patent bilaterally. Intracranial vasculature: The internal carotid arteries are patent at the skull base, as are the ante rior and middle cerebral arteries bilaterally. The right A1 segment is diminutive. The vertebrobasila r system and posterior cerebral arteries are widely patent. The vertebral arteries are codominant. Th ere is origin of the right posterior cerebral artery. There is a 3.5 mm aneurysm of the supracl inoid left internal carotid artery seen on axial image #85. No additional aneurysm is identified. No foci of high-grade stenosis or focal vessel cut off [place] throughout the intracranial circulatio n. Jugular veins: Patent bilaterally. Dural sinuses: Patent. Lung apices: Partially visualized upper lobe lung parenchyma appears clear. Soft tissues: The visualized pharyngeal soft tissues are normal in appearance noting angiographic pha se technique. The oropharyngeal airway appears widely patent. The salivary and thyroid glands are nor mal in appearance. No cervical lymphadenopathy is seen. Skeletal structures: The skeletal structures are osteopenic. The calvarium appears intact. The cervic al spine is within normal limits. Orbits: The bony orbits are intact. Orbital contents are normal as visualized noting bilateral ocular lens implants. Sinuses and mastoids: There is trace mucosal thickening in the left maxillary antrum. The paranasal s inuses are otherwise clear. The mastoid air cells are well pneumatized. IMPRESSION: 1. There is no evidence of hemorrhage, mass effect, or acute territorial ischemia noting angiographic phase technique. 2. 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 3. Otherwise unremarkable CT angiogram of the brain. 4. Unremarkable CT angiogram of the neck. ACT 112: Negative or not required by law. Electronically signed by: Elbert Alvarez M.D. 04/21/2024 10:16 AM
[2024-04-21 11:47] VITALS: BP 106/68; RESP 16; TEMP 97.7; O2SAT 97
[2024-04-21] MEDS ORDERED: STROKE PATIENT DISCHARGE STA (12:54)
--- NOTE | 2024-04-21 12:56 | Discharge Summary ---
Date of Service April 21, 2024 Admission HPI Per Admitting Provider Patient is 69-year-old female with PMH HTN, hypothyroidism, history C. difficile infection unresponsive to antibiotic therapy s/p subtotal colectomy end ileostomy with ileostomy reversed, history of breast cancer s/p partial mastectomy, chemo and radiation presented to ER with c/o episode of dizziness. History obtained from patient, patient's and outpatient chart review. Patient reports went to her appointment around 1130 today and she reports she was "not feeling right" and describes as feeling more tired than usual. She states she felt tired throughout her hair appointment. States she did have her head tilted back at shampoo bowl but was not for a prolonged amount of time and didn't feel any different at that time. States she came home and upon walking into her house she felt more tired and a little short of breath. Reports she called for her . When came out he noticed she was standing but slumped over and appeared generally weak. Patient states at that time she was feeling lightheaded. He states he walked her up the stairs and she was slower walking up the stairs and needed some assistance. Patient denies noting one- sided weakness states just felt generally weak. reports had patient lie down in bed and used automatic wrist BP cuff with reported BP of 188/155. Reports patient has speech impediment at baseline with some difficulty pronouncing some words. did not notice any speech changes, facial drooping. Patient denies any facial or extremity paresthesias, chest pain, palpitations. states repeated BP with same reading approximately 15 minutes later and came to hospital for further evaluation. Upon ER arrival patient had BP 137/93 and she reports feeling at her baseline. States doesn't regularly check her BP at home. Patient reports approximately 2 months ago had episode of feeling lightheaded while she was getting her hair done but that symptoms resolved and she didn't think much of it. Denies fever/chills, diaphoresis, N/V/D/C, , syncope, vision changes, neck pain, CP, orthopnea, palpitations, cough, sore throat, choking, otalgia, rhinorrhea, abdominal pain, paresthesias, extremity edema, rashes, urinary symptoms. Denies recent travel. Admission Exam Per Admitting Provider General: no distress, WDWN Head: normocephalic, atraumatic Eyes: PERRL, EOM's intact, conjunctiva non-injected, anicteric ENT: normal inspection external ears, nose, mucous membranes moist Neck: supple, trachea midline Lungs: clear, no respiratory distress, no wheezing/rhonchi/rales CV: RRR, no murmur, no pretibial edema Abd: normal BS, soft, non-tender Ext: no cyanosis, no calf tenderness Neuro: A&O x 3, visual villalba intact. PERRL, EOMs intact. No nystagmus, facial sensation is intact and symmetric, face is strong and symmetric, hearing grossly intact, soft palate elevates symmetrically, + dysarthria with difficulty pronouncing some words (reports this is baseline). shoulder shrug intact, tongue is midline, normal movement, no fasciculations Strength 5/5 bilateral upper and lower extremities. normal affect Skin: warm, dry Principal Diagnosis Vertigoresolved Discharge Exam Constitutional: WD/WN, vitals as above, NAD, sitting up in bed, pleasant, conversing easily Respiratory: normal respiratory effort, lungs clear to auscultation, no wheeze, rales, rhonchi. Normal insp/exp effort, no accessory muscle use Cardiovascular: RRR, no murmur, no edema Vessels: no JVD or carotid bruit Chest: normal inspection of chest Abdomen: normal bowel sounds, soft, nontender, no hepatosplenomegaly Musculoskeletal: no cyanosis or clubbing, extremities motor strength 5/5 Skin: no rashes, warm and dry normal turgor Neurologic: PERRL, EOMI, accommodation nl, no face palsy, no dysarthria CN's II- XI intact bilaterally and moves all extremities Psychiatric: A+Ox3, euthymic affect Discharge Data Allergies Allergy/AdvReac Type Severity Reaction Status Date / Time No Known Allergies Allergy Verified 10/08/19 15:42 Consultations 04/20/24 17:27 ED Decision to Admit Stat 04/21/24 07:49 Consult Neurology Routine Ordered Studies 04/20/24 17:28 CT head/brain wo con Stat 04/20/24 18:10 MR brain wo con Routine US carotid doppler BI Urgent 04/21/24 07:57 CTA head w con [CT angio head w con] Urgent CTA neck with con [CT angio neck with con] Urgent Hospital Course (1) Dizziness: Plan Patient is a 69-year-old female who presented to the hospital with dizziness. Patient had a hair appointment; had her head tilted back for short period of time. After she came home, she said she started to experience dizziness. The dizziness had subsided prior to presentation to the hospital Patient underwent CT head, CTA head and neck and MRI of the brain. MRI of the brain did not show any stroke. CTA head head and neck showed a 3.5 mm aneurysm of supraclinoid left internal carotid artery. Discussion was done with neurology on-call(Dr. Sutton) who recommended outpatient follow-up with neurovascular surgery. Patient was also found to have elevated troponin which improved subsequently. She did not have any chest pain, palpitation. EKG showed normal sinus rhythm; no ST or T wave changes. She was started on aspirin at the time of the discharge. She was recommended to have outpatient follow-up with her primary care doctor and referral for stress test. Please note the above document was generated using voice recognition software. It may contain grammatical, syntax or spelling errors. Any formal questions or concerns about the content, text or information contained within the body of this dictation should be directly addressed to the provider for clarification Total Time Total Time Spent Total Time Spent (In Minutes): 35 Total Time Includes: Examination of the Patient, Discharge Planning, Medication Reconciliation, Communication With Other Providers and Other Discharge Plan Discharge Items Patient Disposition: Home - Self-Care Reason For Visit: dizziness Discharge Diagnosis: Vertigo-resolved Activity: Resume your previous activity Non-emergency contact: Primary Care Provider Call non-emergency contact if: you have any medication questions and your symptoms worsen Follow-up/Referrals: Chidi Shine MD [Primary Care Provider] - Diet: Regular Addtl Attending Provider Instructions: You were admitted to the hospital due to dizziness and elevated troponin levels(heart enzymes). You underwent evaluation for the dizziness with MRI brain, evaluation of the head and neck vessels which did not show stroke. 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 You will need follow-up with neurovascular surgery. An appointment with your primary care doctor will be set up for you; please obtain referral for neurovascular surgery. Your cardiac enzymes were found to be on the higher side. You underwent echocardiogram which showed good heart function. You are started on aspirin. You will need outpatient stress test. Please discuss this with your primary care doctor. Pending Studies at Discharge: No Stand-Alone Forms: My [facility], Work/School Release, Smoking Cessation Medications and DC Order Prescriptions: New aspirin 81 mg capsule 81 mg PO DAILY Qty: 30 0RF Continued calcium carbonate [Calcium 600] 600 mg calcium (1,500 mg) Tablet 600 mg PO BID levothyroxine 50 mcg Tablet 50 mcg PO QAM lisinopril 5 mg Tablet 5 mg PO QAM colestipol 1 gram Tablet 1 g PO QAM dicyclomine 10 mg Capsule 10 mg PO BID PRN (Reason: Abdominal Pain) Discharge Orders: Discharge Order (Routine); Ordered 04/21/24 Ordered By: Jesus Palacios Admission Data Admit Date/Time: 04/20/24 18:08 Attending Provider: Jesus Palacios Admit Provider: Wilian Sanford Primary Care Provider: Chidi Shine Other Providers: Wilian Sanford; Delta Sutton
[2024-04-21 13:01] VITALS: PULSE 68
--- NOTE | 2024-04-21 16:42 | Electrocardiogram Report ---
Test Reason : Blood Pressure : */* mmHG Vent. Rate : 70 BPM Atrial Rate : 70 BPM P-R Int : 184 ms QRS Dur : 74 ms QT Int : 380 ms P-R-T Axes : 86 59 67 degrees QTcB Int : 410 ms Sinus rhythm with Premature atrial complexes Otherwise normal ECG When compared with ECG of 09-Apr-2015 15:07, Premature atrial complexes are now Present Confirmed by Isis Cohen (Kristin) on 04/21/2024 4:41:42 PM Referred By: REFERRED SELF Confirmed By: Isis Cohen
--- NOTE | 2024-04-21 16:57 | Electrocardiogram Report ---
Test Reason : Blood Pressure : */* mmHG Vent. Rate : 56 BPM Atrial Rate : 56 BPM P-R Int : 196 ms QRS Dur : 76 ms QT Int : 470 ms P-R-T Axes : 64 12 32 degrees QTcB Int : 453 ms Sinus bradycardia Abnormal ECG When compared with ECG of 20-Apr-2024 16:04, (unconfirmed) Premature atrial complexes are no longer Present Confirmed by Isis Cohen (Kristin) on 04/21/2024 4:57:06 PM Referred By: REFERRED SELF Confirmed By: Isis Cohen
== END 2024-04-21 13:50 | disposition home or self-care (01) | DRG 149 ==
LOC: ED 15:10 → SUATTDRO 18:08 → 2N 18:08